=== PATIENT | male | born 1990 | race Caucasian/White ===

== ENCOUNTER 2023-08-11 14:52 | Emergency (ER) | payer BC ==
[~2023-08-11] VITALS: Ht 170.2 cm; Wt 99.8 kg
[2023-08-11 15:13] VITALS: BP 131/89
[2023-08-11] MEDS ORDERED: Robaxin750 MG PO (16:11)
[2023-08-11] MEDS ORDERED: LIDOCAINE1 EACH TOP (16:11)
== END 2023-08-11 17:07 | disposition home or self-care (01) ==
LOC: ER 14:52
DX: M54.50 Low back pain, unspecified (principal); Z88.8 Allergy status to other drugs, medicaments and biological substances
CPT/HCPCS: 96372; 99283-25; A9270; J1885

== ENCOUNTER 2024-06-08 16:42 | Emergency (ER) | payer BC, OTHER ==
[~2024-06-08] VITALS: Ht 170.2 cm; Wt 99.8 kg
[~2024-06-08 16:42] MED LIST: AMOCLA875 PO; LIDOCAINE1 EACH TOP; Robaxin750 MG PO
[2024-06-08 16:46] VITALS: BP 134/92
[2024-06-08] MEDS ORDERED: Acetaminophen 500 MG Tab PO ONE (16:55)
[2024-06-08] MEDS ORDERED: Amoxicillin 875 MG Tab PO ONE (17:20)
[2024-06-08] MEDS ORDERED: Amoxicillin875 MG PO (17:20)
[2024-06-08] MEDS ORDERED: AMOCLA875 PO (17:25)
== END 2024-06-08 17:29 | disposition home or self-care (01) ==
LOC: ER 16:42
DX: J02.0 Streptococcal pharyngitis (principal); F17.200 Nicotine dependence, unspecified, uncomplicated; Z79.899 Other long term (current) drug therapy; Z88.8 Allergy status to other drugs, medicaments and biological substances
CPT/HCPCS: 99283; A9270

== ENCOUNTER 2024-06-10 02:00 | Emergency (ER) | payer BC, OTHER ==
[~2024-06-10] VITALS: Ht 177.8 cm; Wt 90.7 kg
[~2024-06-10 02:00] MED LIST changes: +Amoxicillin875 MG PO
[2024-06-10 02:09] VITALS: BP 124/84
[2024-06-10 02:51] LABS: BASOPHILS ABSOLUTE AUTO 0.07 K/mm3 (0.00-0.23); BASOPHILS PERCENT AUTO 1 % (0-2); EOSINOPHILS ABSOLUTE AUTO 0.23 K/mm3 (0.00-0.68); EOSINOPHILS PERCENT AUTO 2 % (0-6); Hematocrit 47.2 % (37.0-53.0); Hemoglobin 16.3 g/dL (13.5-17.5); IMMATURE GRAN ABSOLUTE AUTO 0.04 K/mm3 (0.00-0.10); IMMATURE GRAN PERCENT AUTO 0 % (0-1); LYMPHOCYTES PERCENT AUTO 21 % (21-46); MONOCYTES ABSOLUTE AUTO 1.66 K/mm3 (0.16-1.47); MONOCYTES PERCENT AUTO 15 % (4-13); Mean Corpuscular HGB 29.4 pg (26.0-34.0); Mean Corpuscular HGB Conc 34.5 g/dL (31.5-36.5); Mean Corpuscular Volume 85 fL (80-100); Mean Platelet Volume 9.4 fL (9.1-12.4); NEUTROPHILS ABSOLUTE AUTO 6.82 K/mm3 (1.96-9.15); NEUTROPHILS PERCENT AUTO 61 % (41-73); Platelet Count 250 K/mm3 (150-400); RDW Coefficient Variation 13.2 % (11.7-14.2); RDW Standard Deviation 41.9 fL (35.1-46.3); Red Blood Cell Count 5.55 M/mm3 (4.30-5.90); White Blood Cell Count 11.12 K/mm3 (4.00-11.30)
[2024-06-10 03:08] LABS: Albumin, Blood 3.7 g/dL (3.4-5.0); Albumin/Globulin Ratio 0.8 (0.8-1.8); Bilirubin, Total 0.6 mg/dL (0.1-1.0); Bun/Creatinine Ratio 12.7 (12.0-20.0); Calcium, Blood 9.4 mg/dL (8.5-10.1); Creatinine, Blood 0.87 mg/dL (0.60-1.20); Globulin, Blood 4.6 g/dL (2.2-4.0); International Normalized Ratio 1.01; Potassium, Blood 3.4 mmol/L (3.5-5.5); Prothrombin Time Results 10.8 Sec (9.7-11.5); Total Protein, Blood 8.3 g/dL (6.4-8.2)
[2024-06-10] MEDS ORDERED: ONDA4ODT MM (03:20)
[2024-06-10] MEDS ORDERED: OMEP20ER PO (03:24)
== END 2024-06-10 03:33 | disposition home or self-care (01) ==
LOC: ER 02:00
PROVIDERS: Student in an Organized Health Care Education/Training Program
DX: K92.0 Hematemesis (principal); J02.0 Streptococcal pharyngitis; Z79.899 Other long term (current) drug therapy; Z88.8 Allergy status to other drugs, medicaments and biological substances
CPT/HCPCS: 80053; 85025; 85610; 85730; 99284

== ENCOUNTER 2024-08-03 11:02 | Emergency (ER) | payer BC, OTHER ==
[~2024-08-03] VITALS: Ht 170.2 cm; Wt 104.3 kg
[~2024-08-03 11:02] MED LIST changes: +OMEP20ER PO; +ONDA4ODT MM
[2024-08-03 11:16] VITALS: BP 138/94
[2024-08-03] MEDS ORDERED: AMOCLA875 PO (14:28)
[2024-08-03] MEDS ORDERED: BACITRACIN ZIN1 EAC1 TOP (14:28)
== END 2024-08-03 15:02 | disposition home or self-care (01) ==
LOC: ER 11:02
DX: L03.032 Cellulitis of left toe (principal)
CPT/HCPCS: 10060; 73630; 99283-25

== ENCOUNTER 2024-09-30 16:58 | Emergency (ER) | payer BC, OTHER ==
[~2024-09-30] VITALS: Ht 170.2 cm; Wt 104.3 kg
[~2024-09-30 16:58] MED LIST changes: +BACITRACIN ZIN1 EAC1 TOP
[2024-09-30 17:30] VITALS: BP 128/92
== END 2024-09-30 19:23 | disposition home or self-care (01) ==
LOC: ER 16:58
DX: M25.462 Effusion, left knee (principal); Z88.8 Allergy status to other drugs, medicaments and biological substances; Z79.899 Other long term (current) drug therapy
CPT/HCPCS: 99283

== ENCOUNTER 2024-11-12 07:57 | Emergency (ER) | payer BC, OTHER ==
[~2024-11-12] VITALS: Ht 170.2 cm; Wt 104.3 kg
[2024-11-12] MEDS ORDERED: Methyl Salicylate/Menth/Camph 57 GM TUBE TOP ONE (10:00)
[2024-11-12] MEDS ORDERED: Methocarbamol 500 MG Tab PO ONE (10:00)
[2024-11-12] MEDS ORDERED: Ketorolac Tromethamine 30mg Vial IM ONE (10:00)
[2024-11-12] MEDS ORDERED: Robaxin750 MG PO (10:31)
[2024-11-12 10:50] VITALS: BP 127/85
== END 2024-11-12 10:52 | disposition home or self-care (01) ==
LOC: ER 07:57
DX: S39.012A Strain of muscle, fascia and tendon of lower back, initial encounter (principal); M62.830 Muscle spasm of back; Z88.8 Allergy status to other drugs, medicaments and biological substances; X50.0XXA Overexertion from strenuous movement or load, initial encounter
CPT/HCPCS: 96372; 99283-25; A9270; J1885

== ENCOUNTER 2025-01-09 12:40 | Emergency (ER) | payer BC ==
[~2025-01-09] VITALS: Ht 170.2 cm; Wt 104.3 kg
[2025-01-09 13:45] LABS: BASOPHILS ABSOLUTE AUTO 0.07 K/mm3 (0.00-0.23); BASOPHILS PERCENT AUTO 1 % (0-2); EOSINOPHILS ABSOLUTE AUTO 0.34 K/mm3 (0.00-0.68); EOSINOPHILS PERCENT AUTO 4 % (0-6); Hematocrit 45.3 % (37.0-53.0); Hemoglobin 15.4 g/dL (13.5-17.5); IMMATURE GRAN ABSOLUTE AUTO 0.03 K/mm3 (0.00-0.10); IMMATURE GRAN PERCENT AUTO 0 % (0-1); LYMPHOCYTES ABSOLUTE AUTO 2.21 K/mm3 (0.84-5.20); LYMPHOCYTES PERCENT AUTO 25 % (21-46); MONOCYTES ABSOLUTE AUTO 0.63 K/mm3 (0.16-1.47); MONOCYTES PERCENT AUTO 7 % (4-13); Mean Corpuscular HGB 29.7 pg (26.0-34.0); Mean Corpuscular Volume 87 fL (80-100); Mean Platelet Volume 10.1 fL (9.1-12.4); NEUTROPHILS ABSOLUTE AUTO 5.51 K/mm3 (1.96-9.15); NEUTROPHILS PERCENT AUTO 63 % (41-73); Platelet Count 291 K/mm3 (150-400); RDW Coefficient Variation 12.6 % (11.7-14.2); RDW Standard Deviation 40.4 fL (35.1-46.3); Red Blood Cell Count 5.19 M/mm3 (4.30-5.90); White Blood Cell Count 8.79 K/mm3 (4.00-11.30)
[2025-01-09 13:56] LABS: Albumin, Blood 4.1 g/dL (3.4-5.0); Albumin/Globulin Ratio 1.2 (0.8-1.8); Bilirubin, Total 0.5 mg/dL (0.1-1.0); Bun/Creatinine Ratio 12.4 (12.0-20.0); Calcium, Blood 9.6 mg/dL (8.5-10.1); Creatinine, Blood 0.81 mg/dL (0.60-1.20); Globulin, Blood 3.5 g/dL (2.2-4.0); Potassium, Blood 3.6 mmol/L (3.5-5.5); Total Protein, Blood 7.6 g/dL (6.4-8.2)
[2025-01-09 16:37] VITALS: BP 128/100
== END 2025-01-09 16:37 | disposition home or self-care (01) ==
LOC: ER 12:40
PROVIDERS: Physician Assistant
DX: R07.9 Chest pain, unspecified (principal); Z88.8 Allergy status to other drugs, medicaments and biological substances; Z59.89 Other problems related to housing and economic circumstances
CPT/HCPCS: 71046; 80053; 84484; 85025; 93005; 93010; 99285-25